=== PATIENT | female | born 1950 | race Caucasian/White ===

== ENCOUNTER → 2019-04-24 09:34 | Outpatient (CLI) | payer MEDICARE, SELFPAY ==
--- NOTE | 2019-04-24 09:41 | RAD_ITS ---
STUDY: X-RAY CHEST REASON FOR EXAM: Female, 68 years old. CBD, shortness of breath TECHNIQUE: PA and lateral views of the chest. COMPARISON: 08/07/2014 FINDINGS: There is hyperinflation of the lungs consistent with chronic obstructive lung disease (COPD). Faint alveolar opacity in the lower left lung consistent with left lower lobe pneumonia or atelectasis. There is no demonstrated pleural abnormality. Normal size heart. Normal mediastinum and carlos. Normal visualized pulmonary arteries. Normal visualized aortic arch and descending thoracic aorta. Normal visualized thoracic spine. Normal visualized ribs, clavicles, and shoulders. There is no demonstrated abnormality of the visualized soft tissue structures of the upper abdomen. RAD/Chest PA and Lateral IMPRESSION: Emphysema with left lower lobe pneumonia or atelectasis. Electronically Signed: Jerald Barraza MD at 10:45 EDT Tel , Service support ,
== END ==
PROVIDERS: Family Provider Family Medicine; PCP Family Medicine; Referring Provider Family Medicine; Visit Provider Family Medicine
DX: J44.1 Chronic obstructive pulmonary disease with (acute) exacerbation (principal)
CPT/HCPCS: 71046

== ENCOUNTER → 2020-06-13 10:13 | Outpatient (CLI) | payer MEDICARE, SELFPAY | PROVIDERS: PCP Family Medicine; Visit Provider Family Medicine | DX: N39.0 Urinary tract infection, site not specified (principal) | CPT/HCPCS: 87086; 87088; 87186 ==

== ENCOUNTER → 2021-04-16 15:07 | Outpatient (CLI) | payer MEDICARE, SELFPAY | PROVIDERS: PCP Family Medicine; Referring Provider Family Medicine; Visit Provider Registered Nurse | DX: U07.1 COVID-19 (principal) | CPT/HCPCS: 87635; U0005; U0003 ==

== ENCOUNTER → 2022-04-09 | Outpatient (CLI) | payer MEDICARE, SELFPAY ==
[2022-04-09 17:44] LABS: Absolute Lymphocyte Count 1.08 X10^3/uL (0.83-4.51); Absolute Neutrophil Count 2.6 X10^3/uL (2.0-7.7); Basophil# 0.04 X10^3/uL; Eosinophil# 0.04 X10^3/uL; Hematocrit 40.2 % (37-47); Lymphocyte # 1.08 X10^3/ul (0.83-4.51); Mean Corp Hgb Conc 32.3 g/dL (32-36); Mean Corpuscular Hgb 28.4 pg (27.0-32.0); Mean Platelet Vol. 12.7 fl (6.2-12.0); Monocyte# 0.26 X10^3/uL; Monocyte% 6.5 % (0-10); NRBC Flagged by Analyzer 0 % (0-5); Neutrophil # 2.57 X10^3/uL (2.7-7.7); Neutrophil % 64.2 % (47-70); Platelet Count 130 K/mm3 (150-450); RBC Distribution Width CV 13.6 % (11.6-14.6); RBC Distribution Width SD 43.5 fl (35.1-43.9); Red Blood Count 4.57 M/mm3 (4.2-5.4)
[2022-04-09 18:04] LABS: Vitamin B12 497 pg/mL (211-911)
[2022-04-09 18:24] LABS: ALB/GLOB Ratio 1.1 RATIO (0.9-2.4); AST(SGOT) 27 U/L (15-37); Alanine Aminotransfer ALT/SGPT 27 U/L (13-56); Alkaline Phosphatase 95 U/L (45-117); Anion Gap 7 (5-15); BUN 15 mg/dL (7-18); BUN/Creat Ratio 14.9 RATIO (10-20); Calcium,Total 9.7 mg/dL (8.5-10.1); Chloride 105 mmol/L (98-107); Creatinine, Serum 1.01 mg/dL (0.55-1.02); EST Glomerular Filtration Rate 57 mL/min (>60); Est Glom Filt Rate - Afr Amer 69 mL/min (>60); Globulin 3.8 g/dL (2.2-4.2); Glucose 89 mg/dL (74-106); Potassium 4.5 mmol/L (3.5-5.1); Protein, Total 7.8 g/dL (6.4-8.2); Sodium Level 138 mmol/L (136-145); Thyroid Stim Hormone (TSH) 1.33 uIU/mL (0.358-3.74)
== END | disposition home or self-care (01) ==
LOC: MFPLAB 14:25
PROVIDERS: PCP Family Medicine; Referring Provider Family Medicine; Visit Provider Family Medicine
DX: B02.29 Other postherpetic nervous system involvement (principal)
CPT/HCPCS: 36415; 80053; 82607; 84443; 85025

== ENCOUNTER → 2022-11-02 | Outpatient (CLI) | payer OTHER, SELFPAY | END | disposition home or self-care (01) | PROVIDERS: PCP Family Medicine; Visit Provider Family Medicine | DX: R30.0 Dysuria (principal) | CPT/HCPCS: 87077; 87086; 87088; 87186 ==

== ENCOUNTER → 2023-02-11 | Outpatient (CLI) | payer MEDICARE, SELFPAY ==
--- NOTE | 2023-02-11 12:48 | BI_ITS ---
MAMMOGRAPHY - BILATERAL SCREENING 3-D TOMOSYNTHESIS REASON FOR EXAM: Female, 72 years old. Routine screening PERTINENT HISTORY: No significant family history. TECHNIQUE: 2-D mammograms and 3-D Tomosynthesis of the breast (s) were performed. CAD was performed. COMPARISON: No comparison mammograms available at this time. If any prior films become available, an addendum to this report can be generated. FINDINGS: The breast composition is heterogeneously dense that can obscure small breast masses. Benign vascular calcifications are seen. No dense spiculated masses or suspicious microcalcifications are identified. No architectural distortion is identified. There is no skin thickening or retraction. BI/SCRN MAMM (CAD)W/NIKIA BILAT IMPRESSION: No mammographic signs of malignancy. Routine yearly mammograms recommended. ASSESSMENT CATEGORY: BIRADS Category 2: Benign. A letter regarding these results will be sent to the patient by the facility within 30 days. FOLLOW UP RECOMMENDATION: Yearly follow up mammogram recommended. (A) Approximately 10% of breast cancers are not detected by mammography. A normal mammogram should not delay biopsy of a clinically suspicious abnormality. Electronically Signed: Chilango Lagos MD at 14:14 EDT ,
--- NOTE | 2023-02-11 12:53 | BD_ITS ---
STUDY: DUAL ENERGY X-RAY ABSORPTIOMETRY / DXA REASON FOR EXAM: Female, 72 years old. Z780 TECHNIQUE: Bone Mineral Density (BMD) measurements of lumbar spine and bilateral hips were obtained. COMPARISON: None. FINDINGS: Lumbar Spine (L1-L4): g/cm2 (0.848) / T-score (-1.9) / Z-score (0.6) Findings are suggestive of osteopenia with a moderate fracture risk. Left Femur Total: g/cm2 (0.709) / T-score (-1.9) / Z-score (-0.2) Left Femoral Neck: g/cm2 (0.680) / T-score (-1.5) / Z-score (0.5) Right Femur Total: g/cm2 (0.696) / T-score (-2.0) / Z-score (-0.3) Right Femoral Neck: g/cm2 (0.668) / T-score (-1.6) / Z-score (0.4) BD/Dexa Bone Density Study IMPRESSION: The patient is considered osteopenic as outlined below according to World Patrick Organization (WHO) criteria with a moderate fracture risk. Reference Information: The T-score is the number of standard deviations above or below the standard which is normal for young adults at their peak bone mineral density. The World Health Organization (WHO) interprets the T-scores as follows: Above -1 Normal bone density Between -1 and -2.5 Osteopenia Equal to / or below -2.5 Osteoporosis As a practical clinical guideline, osteopenia may be graded as follows: Mild -1 through -1.5 Moderate -1.6 through -2.0 Severe -2.1 through -2.4 The Z-score is the number of standard deviations above or below age-matched controls. A Z-score of less than -1.5 would be considered abnormal. References: 1. NIH Osteoporosis and Related Bone Diseases www osteo.org 2. International Society for Clinical Densitometry www iscd.org 3. National Osteoporosis Foundation www nof.org Electronically Signed: Khang Jang MD at 11:11 EDT ,
== END | disposition home or self-care (01) ==
LOC: OPBD 12:46
PROVIDERS: PCP Family Medicine; Referring Provider Family Medicine; Visit Provider Family Medicine
DX: Z12.31 Encounter for screening mammogram for malignant neoplasm of breast (principal); N95.9 Unspecified menopausal and perimenopausal disorder
CPT/HCPCS: 77063; 77067; 77080

== ENCOUNTER → 2023-07-08 | Outpatient (CLI) | payer MEDICARE, SELFPAY ==
[2023-07-08 10:17] LABS: Erythrocyte Sedimentation Rate 18 mm/hr (0-30)
[2023-07-08 10:20] LABS: Absolute Lymphocyte Count 0.47 X10^3/uL (0.83-4.51); Absolute Neutrophil Count 2.5 X10^3/uL (2.0-7.7); Basophil# 0.01 X10^3/uL; Basophil% 0.3 % (0-1); Eosinophil# 0.04 X10^3/uL; Eosinophils% 1.3 % (0-5); Hematocrit 35.1 % (37-47); Hemoglobin 11.2 g/dL (12.0-15.0); Lymphocyte # 0.47 X10^3/ul (0.83-4.51); Lymphocyte % 14.8 % (19-41); Mean Corp Hgb Conc 31.9 g/dL (32-36); Mean Corpuscular Hgb 28.6 pg (27.0-32.0); Mean Corpuscular Volume 89.5 fL (81-99); Mean Platelet Vol. 11.7 fl (6.2-12.0); Monocyte# 0.18 X10^3/uL; Monocyte% 5.7 % (0-10); NRBC Flagged by Analyzer 0 % (0-5); Neutrophil # 2.45 X10^3/uL (2.7-7.7); POSITIVE DIFFERENTIAL YES; Platelet Count 197 K/mm3 (150-450); RBC Distribution Width CV 13.9 % (11.6-14.6); RBC Distribution Width SD 44.8 fl (35.1-43.9); Red Blood Count 3.92 M/mm3 (4.2-5.4); White Blood Count 3.2 K/mm3 (4.4-11.0)
[2023-07-08 10:25] LABS: Differential Indicated SCAN CRITERIA MET
[2023-07-08 10:51] LABS: Differential Comment SCANNED
[2023-07-08 11:03] LABS: PTHIN 60.3 pg/mL (18.4-80.1)
[2023-07-08 11:42] LABS: ALB/GLOB Ratio 0.8 RATIO (0.9-2.4); AST(SGOT) 28 U/L (15-37); Alanine Aminotransfer ALT/SGPT 15 U/L (13-56); Albumin, Serum 3.2 g/dL (3.2-5.0); Alkaline Phosphatase 98 U/L (45-117); Anion Gap 5 (5-15); BUN 19 mg/dL (7-18); BUN/Creat Ratio 20.3 RATIO (10-20); Calcium,Total 8.6 mg/dL (8.5-10.1); Chloride 111 mmol/L (98-107); Creatinine, Serum 0.94 mg/dL (0.55-1.02); EST Glomerular Filtration Rate 62 mL/min (>60); Est Glom Filt Rate - Afr Amer 75 mL/min (>60); Glucose 90 mg/dL (74-106); Magnesium 2.4 mg/dL (1.6-2.6); Protein, Total 7.2 g/dL (6.4-8.2); Sodium Level 142 mmol/L (136-145); Thyroid Stim Hormone (TSH) 2.62 uIU/mL (0.358-3.74)
[2023-07-09 12:09] LABS: ANTINUCLEAR ANTIBODIES DIRECT Positive (Negative); Anti-Centromere B Ab <0.2 AI (0.0-0.9); Anti-Chromatin 1.2 AI (0.0-0.9); Anti-Jo <0.2 AI (0.0-0.9); Anti-Scleroderma-70 AB <0.2 AI (0.0-0.9); Anti-dsDNA Ab 2 IU/mL (0-9); RNP Ab <0.2 AI (0.0-0.9); SJOGREN'S Anti-SS-A test < 0.2 AI (0.0-0.9); SJOGREN'S Anti-SS-B test < 0.2 AI (0.0-0.9); Smith Ab <0.2 AI (0.0-0.9)
[2023-07-09 13:21] LABS: Pathologist Review Reviewed
[2023-07-09 15:08] LABS: Lyme Scn Total Ab w/Rflx Negative (Negative); PROEL- Albumin 3.3 g/dL (2.9-4.4); PROEL- Alpha-1 Globulin 0.4 g/dL (0.0-0.4); PROEL- Alpha-2 Globulin 0.5 g/dL (0.4-1.0); PROEL- Beta Globulin 0.9 g/dL (0.7-1.3); PROEL- Gamma Globulin 1.4 g/dL (0.4-1.8); PROEL- Globulin, Total 3.2 g/dL (2.2-3.9); PROEL- TOTAL PROTEIN 6.5 g/dL (6.0-8.5); PROEL-M-Spike Not Observed g/dL (Not Observed)
== END | disposition home or self-care (01) ==
LOC: MFPLAB 08:46
PROVIDERS: PCP Family Medicine; Visit Provider Family Medicine
DX: M79.10 Myalgia, unspecified site (principal)
CPT/HCPCS: 36415; 80053; 83735; 83970; 84165; 84443; 85025; 85652; 86038; 86140; 86225; 86235; 86431; 86618

== ENCOUNTER → 2023-09-30 | Outpatient (CLI) | payer MEDICARE, SELFPAY ==
--- NOTE | 2023-09-30 12:35 | RAD_ITS ---
INDICATION: COPD EXAMINATION/TECHNIQUE: X-RAY - XR Chest 2 Views COMPARISON: Prior study dated: 04/24/2019 FINDINGS: LINES/DEVICES: None. LUNGS: Left lower lobe infiltrate/atelectasis new since previous exam. Small left pleural effusion. MEDIASTINUM AND CARDIOVASCULAR STRUCTURES: Cardiac silhouette not enlarged. Central airways and mediastinal contour are unremarkable. BONES AND SOFT TISSUES: No demonstrated acute osseous changes. RAD/Chest PA and Lateral IMPRESSION: Mild left lower lobe infiltrate/atelectasis and small left pleural effusion. Electronically Signed: Shay Grey MD at 8:28 EST ,
[2023-09-30 15:37] LABS: Absolute Lymphocyte Count 0.86 X10^3/uL (0.83-4.51); Absolute Neutrophil Count 7.5 X10^3/uL (2.0-7.7); Basophil# 0.03 X10^3/uL; Basophil% 0.3 % (0-1); Hematocrit 37.3 % (37-47); Hemoglobin 11.9 g/dL (12.0-15.0); Lymphocyte # 0.86 X10^3/ul (0.83-4.51); Lymphocyte % 9.5 % (19-41); Mean Corp Hgb Conc 31.9 g/dL (32-36); Mean Corpuscular Hgb 27.7 pg (27.0-32.0); Mean Corpuscular Volume 86.7 fL (81-99); Mean Platelet Vol. 12.8 fl (6.2-12.0); Monocyte# 0.68 X10^3/uL; Monocyte% 7.5 % (0-10); NRBC Flagged by Analyzer 0 % (0-5); Neutrophil # 7.49 X10^3/uL (2.7-7.7); Neutrophil % 82.3 % (47-70); Platelet Count 147 K/mm3 (150-450); RBC Distribution Width CV 14.6 % (11.6-14.6); RBC Distribution Width SD 45.9 fl (35.1-43.9); White Blood Count 9.1 K/mm3 (4.4-11.0)
[2023-09-30 16:24] LABS: Erythrocyte Sedimentation Rate 17 mm/hr (0-30)
[2023-09-30 19:07] LABS: ALB/GLOB Ratio 0.7 RATIO (0.9-2.4); AST(SGOT) 32 U/L (15-37); Alanine Aminotransfer ALT/SGPT 24 U/L (13-56); Albumin, Serum 3.3 g/dL (3.2-5.0); Alkaline Phosphatase 131 U/L (45-117); Anion Gap 8 (5-15); BUN 19 mg/dL (7-18); BUN/Creat Ratio 17.8 RATIO (10-20); Calcium,Total 9.1 mg/dL (8.5-10.1); Chloride 106 mmol/L (98-107); Creatinine, Serum 1.07 mg/dL (0.55-1.02); EST Glomerular Filtration Rate 53 mL/min (>60); Est Glom Filt Rate - Afr Amer 64 mL/min (>60); Globulin 4.5 g/dL (2.2-4.2); Glucose 96 mg/dL (74-106); Potassium 3.7 mmol/L (3.5-5.1); Protein, Total 7.8 g/dL (6.4-8.2); Sodium Level 135 mmol/L (136-145)
[2023-10-04 12:09] LABS: ANTINUCLEAR ANTIBODIES DIRECT Positive (Negative)
[2023-10-04 15:08] LABS: PROEL- Albumin 3.4 g/dL (2.9-4.4); PROEL- Alpha-1 Globulin 0.5 g/dL (0.0-0.4); PROEL- Alpha-2 Globulin 0.7 g/dL (0.4-1.0); PROEL- Beta Globulin 0.8 g/dL (0.7-1.3); PROEL- Gamma Globulin 1.4 g/dL (0.4-1.8); PROEL- Globulin, Total 3.4 g/dL (2.2-3.9); PROEL- TOTAL PROTEIN 6.8 g/dL (6.0-8.5); PROEL-M-Spike Comment: g/dL (Not Observed)
== END | disposition home or self-care (01) ==
PROVIDERS: PCP Family Medicine; Referring Provider Family Medicine; Visit Provider Family Medicine
DX: J44.9 Chronic obstructive pulmonary disease, unspecified (principal); M06.4 Inflammatory polyarthropathy; R41.89 Other symptoms and signs involving cognitive functions and awareness
CPT/HCPCS: 36415; 71046; 80053; 84165; 85025; 85652; 86038; 86140

== ENCOUNTER → 2023-10-08 | Outpatient (CLI) | payer MEDICARE, SELFPAY ==
--- NOTE | 2023-10-08 12:44 | RAD_ITS ---
STUDY: X-RAY CHEST REASON FOR EXAM: Female, 73 years old. Left lower lobe pneumonia. Follow-up. Smoker. TECHNIQUE: Frontal and lateral views of the chest. COMPARISON: 09/30/2023. FINDINGS: Borderline cardiomegaly, aortic tortuosity, prominent central pulmonary arteries, hyperinflation and scattered healed parenchymal granulomatous calcifications unchanged. Linear opacity at the left base with left pleural thickening, relatively unchanged from prior study. No abnormality of the visualized soft tissue structures of the upper abdomen. RAD/Chest PA and Lateral IMPRESSION: Stable borderline cardiomegaly, hyperinflation and linear opacity with left pleural thickening/pleural effusion. No acute abnormality. Follow-up chest imaging to resolution recommended. Electronically Signed: Lester Manzano MD at 13:14 EDT ,
== END | disposition home or self-care (01) ==
LOC: MTRAD 12:39
PROVIDERS: PCP Family Medicine; Referring Provider Family Medicine; Visit Provider Family Medicine
DX: J15.4 Pneumonia due to other streptococci (principal); J10.1 Influenza due to other identified influenza virus with other respiratory manifestations
CPT/HCPCS: 71046

== ENCOUNTER → 2023-11-18 | Outpatient (CLI) | payer MEDICARE, SELFPAY ==
--- NOTE | 2023-11-18 14:01 | RAD_ITS ---
STUDY: X-RAY CHEST REASON FOR EXAM: Female, 73 years old. Pneumonia due to other streptococci TECHNIQUE: PA and lateral views of the chest. COMPARISON: Comparison is made with prior study October 08, 2023. FINDINGS: There is hyperinflation of the lungs consistent with chronic obstructive lung disease (COPD). The lungs are clear. There is no demonstrated pleural abnormality. Normal size heart. Normal mediastinum and carlos. There is prominence of the pulmonary hilar arteries without peripheral pulmonary vascular congestion, suggesting pulmonary hypertension. There is atherosclerotic calcification of the aortic arch with tortuosity. There are diffuse degenerative changes of the visualized thoracic spine. Normal visualized ribs, clavicles, and shoulders. There is no demonstrated abnormality of the visualized soft tissue structures of the upper abdomen. RAD/Chest PA and Lateral IMPRESSION: Hyperinflation. No acute abnormality is seen. Electronically Signed: Khang Jang MD at 9:22 EDT ,
== END | disposition home or self-care (01) ==
LOC: MTRAD 13:59
PROVIDERS: PCP Family Medicine; Referring Provider Family Medicine; Visit Provider Family Medicine
DX: J15.4 Pneumonia due to other streptococci (principal)
CPT/HCPCS: 71046

== ENCOUNTER 2024-06-20 16:33 | Inpatient (IN) | payer MEDICARE, SELFPAY ==
[2024-06-20 16:38] VITALS: BP 87/40; PULSE 81; RESP 16; TEMP 36.6; O2SAT 99
--- NOTE | 2024-06-20 17:33 | CT_ITS ---
STUDY: CT ABDOMEN AND PELVIS WITH CONTRAST REASON FOR EXAM: Female, 73 years old. Anemia, jaundice painless RADIATION DOSAGE (If Supplied By Facility): CTDIvol = ( 10.56 ) mGy, DLP = ( 533.09 ) mGycm TECHNIQUE: Transaxial images were obtained from the dome of the diaphragm to the symphysis pubis without oral contrast. IV 100mL Isovue-300 was administered. Sagittal and coronal images were reconstructed. Individualized dose optimization techniques were used for this CT. COMPARISON: None. FINDINGS: The visualized lung bases are unremarkable. The visualized portions of the heart are within normal limits. The liver is enlarged but homogeneous attenuation without mass or bile duct dilatation.. Contracted gallbladder without calcified stones most likely physiologic. The spleen is markedly enlarged but homogeneous attenuation. Normal pancreas. Normal bilateral adrenal glands. Normal right kidney. Small simple cyst in left kidney which will not require additional imaging Normal visualized stomach. Normal small intestine. Normal colon. The appendix is visualized and appears normal. Atherosclerotic change of the aorta without evidence for aneurysm. Normal inferior vena cava. Normal retroperitoneum. Normal urinary bladder. The uterus is mildly enlarged and deviated towards the left Small right adnexal cyst measuring approximately 2.3 x 1.7 cm likely ovarian. Small amount of free fluid in the pelvis Postop change status post right inguinal herniorrhaphy Lumbar spine demonstrates minor spondylosis. Grade 1 spondylolisthesis at L4-5. CT/Abdomen/Pelvis W IV Cont ONLY IMPRESSION: Nonspecific hepatosplenomegaly with mild ascites. Possible nonspecific hepatocellular disease although cannot exclude hematologic disorder.. Clinical correlation recommended. Electronically Signed: James Knowles MD at 19:06 EST Reading Location ID and State: [facility] / [place] Tel , Service support ,
--- NOTE | 2024-06-20 18:19 | EX.ED.DYSGE1 ---
HPI History of Present Illness Chief Complaint: Abn Labs Detail of Chief Complaint: Low hemoglobin, dyspnea and fatigue and yellow skin Informant: patient and spouse/S.O. Onset/Context/Timing Onset: Days (With respect to the yellow skin) and Weeks (With respect to the shortness of breath) Context: Gradual Onset Timing: Continuous Quality: Hemoglobin low and yellow skin Location: Hematologic and hepatic Current Severity: Mild Maximum Severity: Moderate Worsened by: Dyspnea on exertion Relieved by: Rest Associated Symptoms Associated Symptoms: Dark-colored urine, yellow skin negative weight loss or night sweats Narrative Narrative: Patient is a 73-year-old woman with no significant past medical history. She presents because of abnormal blood work. She had a CBC done at her doctor's office. Hemoglobin was 5.2 with hematocrit of 17.1. MCV is 125.7. Folate and B12 was not obtained. Patient does have a ferritin level. Liver enzymes reveal a total bili of 4.6 with an AST of 60 and ALT of 20. C-reactive protein was elevated 6.74. Total protein and albumin are normal. Patient denies black or maroon-colored stool. Patient denies hematuria. Patient denies headache, visual, ocular auditory symptoms. Patient denies trouble speech or swallowing. Patient denies cardiac symptoms. Patient does report shortness of breath and fatigue with activity. She denies abdominal pain or back pain. She denies skin lesions. She denies bruising easily. She is not on anticoagulant. Prior similar symptoms: No Recent Illness/Hospitalization: No PFSH PFSH Allergy/AdvReac Type Severity Reaction Status Date / Time No Known Allergies Allergy Verified 06/20/24 16:43 Social History (Updated 06/20/24 @ 18:[address] Rizwan Doan MD) household members: spouse Smoking Status: Current every day smoker tobacco type: cigarettes ROS ROS ED Constitutional Constitutional ED: Denies chills, fever(s), subjective, sweats or weight loss Eyes Eyes: Denies blurry vision, change in vision or diplopia ENT ENT ED: Denies ear pain, rhinorrhea or sore throat Cardiovascular Cardiovascular: Denies chest pain, orthopnea, palpitations or paroxysmal nocturnal dyspnea Respiratory/Chest Respiratory/Chest: Reports dyspnea and dyspnea on exertion; Denies cough, orthopnea, paroxysmal nocturnal dyspnea or sputum Gastrointestinal Gastrointestinal: Denies abdominal pain, melena, nausea or vomiting Genitourinary Genitourinary ED: Denies dysuria, hematuria or urinary frequency Musculoskeletal Musculoskeletal: Denies arthralgias, back pain or myalgias Integumentary Denies rash Neurologic Neurologic: Denies headache(s) or paresthesias Psychiatric Psychiatric: Denies anxiety or depression Endocrine Endocrinology: Denies cold intolerance or heat intolerance Hematologic/Lymphatic Hematologic/Lymphatic: Reports systems reviewed and no addt'l complaints, except as documented EXAM Physical Exam Const Vital Signs: 06/20/24 16:38 06/20/24 18:30 06/20/24 18:30 Temperature 97.8 F Temperature Source Temporal Pulse Rate 81 83 Respiratory Rate 16 16 Respiratory Effort Respiratory Pattern Blood Pressure 87/40 L 117/55 L 117/55 L Blood Pressure Mean 55 75 75 Pulse Ox 99 95 Oxygen Delivery Method Room Air Room Air 06/20/24 18:43 Temperature Temperature Source Pulse Rate Respiratory Rate Respiratory Effort Normal Respiratory Pattern Normal Blood Pressure Blood Pressure Mean Pulse Ox Oxygen Delivery Method Positive well nourished and well developed Constitutional Narrative: Patient appears pale and jaundiced. Patient blood pressure apparently was low at 87/40. General Appearance ED: well developed, NAD and pallor; Negative for cyanotic or diaphoretic HEENT Reports dry mucous membranes Mouth ED: Yes dry mucous membranes Mouth: dry mucous membranes Eyes PERRL and EOMs intact bilaterally General Eye ED: Yes pale conjunctiva and scleral icterus Neck no lymphadenopathy, supple and no JVD Chest Wall inspection of chest normal and palpation of chest normal Resp normal respiratory effort and clear to auscultation bilaterally Cardio regular rate, regular rhythm, S1 normal heart sound and no murmurs GI normal to inspection, nondistended, normoactive bowel sounds, non-tender, non-distended and no masses; Negative for hepatosplenomegaly Palpation: soft Back/Spine no CVA tenderness Extremity Extremity Narrative: Edema otherwise negative General Extremety ED: Yes edema General Extremity: edema Neuro oriented x3, CN's II-XII intact bilaterally and no sensory deficits noted Sensorium / Orientation: alert Motor Exam: strength 5/5 throughout Psych mental status grossly normal Skin no rashes or lesions noted, no wounds and skin turgor normal General Skin Exam: jaundice and pallor; Negative for elasticity normal MDM MDM MDM Narrative Medical decision making narrative: Patient's blood work was reviewed that was obtained earlier. There was additional blood work. She was typed and crossed for 2 units of blood. Because she has painless jaundice CT of the abdomen was obtained. This may be a hematologic problem but also need to rule out pancreatic cancer with this being painless. She will require transfusion. Will start transfusion in the emergency department. Since patient's blood pressure is low we will administer 1 L of fluids. I was not aware of her low blood pressure initially. Once I became aware of her low blood pressure I did order IV fluids wide open. Lab Data Labs: Laboratory Results - last 24 hr 06/20/24 06/20/24 17:00 17:50 Vitamin B12 1375 H Folate 17.10 Crossmatch See Detail Radiography Diagnostic Testing: Clinical Impression(s) from Imaging Studies Abdomen/Pelvis CT 06/20/24 17:33 IMPRESSION: Nonspecific hepatosplenomegaly with mild ascites. Possible nonspecific hepatocellular disease although cannot exclude hematologic disorder.. Clinical correlation recommended. Electronically Signed: James Knowles MD at 19:06 EST Reading Location ID and State: [address] [place] [address] Tel , Service support , Management Discussion w/another healthcare provider: Hospitalist (Hospitalist made aware of the CT results and blood results. He will add on additional labs to evaluate if she is hemolyzing and because of her jaundice.) and Tentering Machine Off Bearer (Radiologist contacted me regarding CAT scan result.) Discharge Plan Triage Chief Complaint: Abn Labs Other Complaint: Lower Extremity Injury ED Provider: Rizwan Doan Dx/Rx/DC Orders Clinical Impression: Anemia, pernicious, Painless jaundice, Signs and symptoms of anemia, Symptomatic anemia, Anemia requiring transfusions, Acute hypotension Primary Care Provider: Khadar Feliz Referrals: Khadar Feliz MD [Primary Care Provider] - Print Language: Greenlandic Disposition Disposition: Acute Care Hospital [facility]
[2024-06-20 18:30] VITALS: BP 117/55; PULSE 83; RESP 16; O2SAT 95
[2024-06-20 18:40] LABS: Vitamin B12 1375 pg/mL (211-911)
[2024-06-20] MEDS: 0.9% Normal Saline (1000mL) 1,000 ML 1000 ML IV (18:54)
[2024-06-20 20:00] VITALS: BP 107/62; PULSE 58; RESP 18; TEMP 36.6; O2SAT 95
--- NOTE | 2024-06-20 20:09 | PCM.HP.STD ---
[facility] - General General Date of Admission: 06/20/24 Date of Service: 06/20/24 Chief Complaint: Severe anemia on outpatient labs [facility] Narrative CARLITA BROWN, is a 73 F who presented to [facility] on 06/20/2024 after a severe anemia was found on outpatient labs. Patient has no significant past medical history. 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 She began to notice worsening fatigue and shortness of breath on exertion about 2 weeks ago. She then began to notice yellowing of her skin about 3 to 4 days ago. Also noticed worsening lower extremity swelling, worse on her left with pain to palpation. She was seen at her PCP office and had labs drawn. CBC notable for hemoglobin 5.2, MCV 125. CMP notable for total bilirubin of 4.6, AST 60, ALT 20. CRP was mildly elevated at 6.74. Patient denied any change in bowel movements or any acid reflux symptoms. Given her abnormal labs, patient was sent to the ED for further evaluation. On arrival here she was hypotensive to the 80s over 40s but otherwise hemodynamically stable with heart rate in the 80s. She was noted to have fairly significant jaundice. She was given 1 L of IV fluids with good blood pressure response. Type and screen was ordered and hospitalist was contacted for admission. I saw the patient at bedside in the ED, was present. Patient was mildly fatigued appearing but otherwise sitting up comfortably in bed, conversing normally and in no acute distress. She does report pain and swelling in her bilateral lower legs, worse on the left. Denies any history of clots. Denies any history of autoimmune disease. Patient does note that she was bitten by a tick about 2 weeks ago. When she finally noticed the tick it was very engorged. Her PCP started her on p.o. doxycycline only a few days ago. Lyme disease antibody was ordered and is pending. She also noted a significant brown recluse spider bite on her right inner ankle several months ago. Spider bite has healed well per the patient. Patient otherwise denies any other acute pain or discomfort. Will be admitted for further management. 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 Testing done prior to transfusing the patient showed that patient's blood had significant reaction and would lead to a transfusion reaction for patient if given. I talked with lab over the phone and they told me that we would have to get blood from an outside facility and this could take up to 2 to 3 days. Because of this and patient's potential need for further hemolytic anemia workup and treatments such as Rituxan that are not available here, transfer was initiated. Patient was ultimately accepted to the telemetry unit at [facility] and transport will be picking the patient up around 8 AM. [facility] Home Medications ?Medication ?Instructions ?Recorded ?Last Taken ?Type albuterol sulfate 90 mcg/actuation 1 - 2 puff inhalation Q4H PRN PRN 06/20/24 Unknown History aerosol inhaler wheezing bimatoprost 0.03 % eye drops 1 drp ophthalmic (eye) DAILY 06/20/24 Unknown History doxycycline monohydrate 100 mg 100 mg PO BID 06/20/24 Unknown History tablet mirtazapine 15 mg tablet 15 mg PO QHS 06/20/24 Unknown History pregabalin 150 mg capsule 150 mg PO QHS 06/20/24 Unknown History pregabalin 25 mg capsule 25 mg PO BID 06/20/24 Unknown History Allergy/AdvReac Type Severity Reaction Status Date / Time No Known Allergies Allergy Verified 06/20/24 16:43 Social History (Updated 06/20/24 @ 18:[address] Rizwan Doan MD) household members: spouse Smoking Status: Current every day smoker tobacco type: cigarettes ROS Constitutional Constitutional: Reports fatigue and weakness; Denies chills or fever(s) Eyes Eyes: Denies change in vision ENT HEENT: Denies dysphagia Cardiovascular Cardiovascular: Denies chest pain or palpitations Respiratory/Chest Respiratory/Chest: Denies cough or shortness of breath at rest Gastrointestinal Gastrointestinal: Denies abdominal pain Musculoskeletal Musculoskeletal: Denies arthralgias or myalgias Vital Signs Vital Signs Vital Signs: 06/20/24 16:38 06/20/24 18:30 06/20/24 18:30 Temperature 97.8 F Temperature Source Temporal Pulse Rate 81 83 Respiratory Rate 16 16 Respiratory Effort Respiratory Pattern Blood Pressure 87/40 L 117/55 L 117/55 L Blood Pressure Mean 55 75 75 Pulse Ox 99 95 Oxygen Delivery Method Room Air Room Air 06/20/24 18:43 Temperature Temperature Source Pulse Rate Respiratory Rate Respiratory Effort Normal Respiratory Pattern Normal Blood Pressure Blood Pressure Mean Pulse Ox Oxygen Delivery Method Physical Exam Const alert, oriented x3, no apparent distress and average body habitus Constitutional Narrative: Pleasant elderly female, mildly fatigued appearing, otherwise sitting up comfortably in bed, conversing normally, in no acute distress. General Appearance: cooperative and comfortable HEENT normocephalic, head/scalp atraumatic, hearing grossly normal bilaterally, nasal mucous membranes and turbinates normal and moist oral mucous membranes Eyes PERRL, EOMs intact bilaterally and conjunctivae normal Eyes Narrative: Scleral icterus noted. Neck full ROM Chest inspection of chest normal Resp normal respiratory effort, normal air movement, no use of accessory muscles and clear to auscultation bilaterally Cardio regular rate, regular rhythm, no murmurs and peripheral pulses 2+ throughout GI normal to inspection, nondistended, normoactive bowel sounds, soft to palpation, non-tender and non-distended Back/Spine normal ROM Extremity normal to inspection, full ROM and no pedal edema Skin Skin Narrative: Whole-body jaundice noted. Psych mental status grossly normal Results Lab / Micro Data Labs: Laboratory Results - last 24 hr 06/20/24 17:00: Folate 17.10, Crossmatch See Detail 06/20/24 17:50: Vitamin B12 1375 H Imaging Radiology Impression Abdomen/Pelvis CT 06/20/24 17:33 IMPRESSION: Nonspecific hepatosplenomegaly with mild ascites. Possible nonspecific hepatocellular disease although cannot exclude hematologic disorder.. Clinical correlation recommended. 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 1. 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 Admit under inpatient status to PCU. Hemoglobin 5.2 on admit, MCV 125. Last hemoglobin was 11.9 in September. Lab had high concern for warm autoimmune hemolytic anemia given patient's lab findings and reactions on blood products in the lab here. Unclear etiology for warm AIHA but patient did have recent tick bite and babesiosis and Lyme disease have been associated with this. Transferring process to [facility]. Did give a dose of IV Solu-Medrol 125 mg here as recommended treatment is steroids plus likely a steroid sparing agent like Rituxan. 2. Left lower extremity swelling ?Has +2-3 left lower extremity pitting edema from the foot up to just below the knee. D-dimer elevated at 1.50. Patient's with warm autoimmune hemolytic anemia are at high risk for DVT. Notably is hemodynamically stable on room air, low concern for PE. Ordered lower extremity duplex ultrasound to assess for DVT here but suspect this will not be completed prior to transfer. 3. Recent tick bite ? Patient reported incidentally pulling tick off that was very engorged about 2 weeks ago. Was prescribed p.o. doxycycline and has taken that as prescribed to this point. 4. Neuropathy ? Continue home Lyrica. 5. Painless jaundice ? Total bilirubin 4.6 on admit, direct bilirubin 0.91. Hepatosplenomegaly noted on CT abdomen pelvis here but no other significant findings noted. Presume this is secondary to hemolytic anemia as noted above. DVT prophylaxis: SCDs CODE STATUS: Full code, verified Expected disposition: Transfer to [facility] Total clinical time spent by myself addressing the patient's medical issues, reviewing all the data, and collaborating with patient's care team: 75 minutes. Charges/Coding Visit Charges Inpatient E&M: 34492 Init Hosp L3
[2024-06-20 20:26] VITALS: BP 107/62; PULSE 58; RESP 18; TEMP 36.6; O2SAT 95
[2024-06-20 21:43] VITALS: BMI 21.9
[2024-06-20 21:48] VITALS: BMI 21.9
[2024-06-20 21:51] LABS: Bilirubin, Direct 0.91 mg/dL (0.00-0.30); Ferritin 133 ng/mL (8-252); Iron 145 ug/dL (50-170); Iron Binding Capacity,Total 209 ug/dL (250-450); LDH 620 U/L (84-246); PERCENT IRON SATURATION 69.4 % (15.0-55.0)
[2024-06-20 22:05] VITALS: BP 111/46; PULSE 90; RESP 18; TEMP 36.7; O2SAT 98
[2024-06-20] MEDS: Mirtazapine 15 MG Tablet PO (22:58)
[2024-06-20] MEDS: Pregabalin 75 MG Capsule 150 MG PO (22:58)
[2024-06-20] MEDS: Latanoprost 0.005% 1 Bottle 1 DRP OPHTHALMIC (23:02)
[2024-06-20] MEDS: MethylPREDNISolone 125 MG/2 ML Vial IV (23:59)
[2024-06-20] MEDS: Doxycycline 100 MG CAPSULE PO (23:59)
[2024-06-21] MEDS: Folic Acid 1 MG Tablet PO (01:24)
[2024-06-21 02:03] LABS: Platelet Count 95 K/mm3 (150-450); Reticulocyte Count 0.77 % (0.5-1.5)
[2024-06-21 04:06] VITALS: BP 102/50; PULSE 82; RESP 16; TEMP 36.6; O2SAT 96
--- NOTE | 2024-06-21 06:36 | DCINST_ITS ---
Discharge Instructions Diet Discharge Diet: No restrictions DC O2, CPAP, BIPAP needs Additional Home O2 Discharge instructions: No Follow Up Care Test Results: Test results from this visit will be discussed in further detail at your follow- up appointment, if applicable. Discharge Plan Admission Admit Date/Time: 06/20/24 20:42 Primary Reason for Your Visit: fatigue Attending Provider: Daniel Lima Primary Care Provider: Khadar Feliz Discharge Orders/Prescriptions Prescriptions: Continued mirtazapine 15 mg tablet 15 mg PO QHS bimatoprost 0.03 % drops 1 drp ophthalmic (eye) DAILY doxycycline monohydrate 100 mg tablet 100 mg PO BID albuterol sulfate 90 mcg/actuation HFA aerosol inhaler 1 - 2 puff INHALATION Q4H PRN PRN (Reason: wheezing) pregabalin 25 mg capsule 25 mg PO BID pregabalin 150 mg capsule 150 mg PO QHS Referrals / Follow Up: Khadar Feliz MD [Primary Care Provider] - Disposition Disposition (needs filled in before D/C Order can be placed): [facility]
--- NOTE | 2024-06-21 06:36 | PCM.DC.SUM ---
Providers Date of Admission: 06/20/24 Date of Discharge: 06/21/24 Primary Care Physician: Dr. 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 Code(s): D59.10 - Autoimmune hemolytic anemia, unspecified (2) Symptomatic anemia: Status: Acute Code(s): D64.9 - Anemia, unspecified (3) Painless jaundice: Status: Acute Code(s): R17 - Unspecified jaundice Medications at Discharge Home Medications albuterol sulfate 90 mcg/actuation aerosol inhaler 1 - 2 puff inhalation Q4H PRN PRN wheezing 06/20/24 bimatoprost 0.03 % eye drops 1 drp ophthalmic (eye) DAILY 06/20/24 doxycycline monohydrate 100 mg tablet 100 mg PO BID 06/20/24 mirtazapine 15 mg tablet 15 mg PO QHS 06/20/24 pregabalin 150 mg capsule 150 mg PO QHS 06/20/24 pregabalin 25 mg capsule 25 mg PO BID 06/20/24 Hospital Course Operations None Procedures None Summary of Care Provided Minutes Spent on Discharge: 35 Hospital Course: Patient is a 73-year-old female who presented [facility] ED on 06/20/24 with abnormal outpatient labs. Short hospital course was notable low. Patient was transferred to [facility] on 06/21. 1. 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 Hemoglobin 5.2 on admit, MCV 125. Last hemoglobin was 11.9 in September. Lab had high concern for warm autoimmune hemolytic anemia given patient's lab findings and reactions on blood products in the lab here. Unclear etiology for warm AIHA but patient did have recent tick bite and babesiosis and Lyme disease have been associated with this. Was given a dose of IV Solu-Medrol 125 mg here prior to transfer. Transferred to [facility] on 06/21. 2. Left lower extremity swelling ? Had +2-3 left lower extremity pitting edema from the foot up to just below the knee. D-dimer elevated at 1.50. Patient's with warm autoimmune hemolytic anemia are at high risk for DVT. Notably is hemodynamically stable on room air, low concern for PE. Ordered lower extremity duplex ultrasound to assess for DVT here but suspect this was not completed prior to transfer. 3. Recent tick bite ? Patient reported incidentally pulling tick off that was very engorged about 2 weeks ago. Was prescribed p.o. doxycycline and had taken that as prescribed to this point, was continued here. 4. Neuropathy ? Continue home Lyrica. 5. Painless jaundice ? Total bilirubin 4.6 on admit, direct bilirubin 0.91. Hepatosplenomegaly noted on CT abdomen pelvis here but no other significant findings noted. Presume this is secondary to hemolytic anemia as noted above. Total clinical time spent by myself addressing the patient's medical issues, reviewing all the data, and collaborating with patient's care team: 35 minutes. Physical Exam Const alert, oriented x3, no apparent distress and average body habitus Constitutional Narrative: Pleasant elderly female, mildly fatigued appearing, otherwise sitting up comfortably in bed, conversing normally, in no acute distress. General Appearance: cooperative and comfortable HEENT normocephalic, head/scalp atraumatic, hearing grossly normal bilaterally, nasal mucous membranes and turbinates normal and moist oral mucous membranes Eyes PERRL, EOMs intact bilaterally and conjunctivae normal Eyes Narrative: Scleral icterus noted. Neck full ROM Chest inspection of chest normal Resp normal respiratory effort, normal air movement, no use of accessory muscles and clear to auscultation bilaterally Cardio regular rate, regular rhythm, no murmurs and peripheral pulses 2+ throughout GI normal to inspection, nondistended, normoactive bowel sounds, soft to palpation, non-tender and non-distended Back/Spine normal ROM Extremity normal to inspection, full ROM and no pedal edema Skin Skin Narrative: Whole-body jaundice noted. Psych mental status grossly normal Weight / BMI Weight Weight: 56 kg Body Mass Index (BMI) 21.9 ABG / Lab / Microbiology Data 06/21/24 06:19 06/21/24 06:19 Laboratory: Laboratory Results - last 24 hr 06/20/24 17:00: Folate 17.10, Crossmatch See Detail 06/20/24 17:50: Vitamin B12 1375 H 06/20/24 21:05: Iron 145, TIBC 209 L, Iron Saturation 69.4 H, Ferritin 133, Direct Bilirubin 0.91 H, Lactate Dehydrogenase 620 H, TSH 1.260 06/21/24 01:15: Retic Count 0.77, D-Dimer Quant (PE/DVT) 1.50 H* Radiography Diagnostic Testing: Radiology Impression Abdomen/Pelvis CT 06/20/24 17:33 IMPRESSION: Nonspecific hepatosplenomegaly with mild ascites. Possible nonspecific hepatocellular disease although cannot exclude hematologic disorder.. Clinical correlation recommended. Electronically Signed: James Knowles MD at 19:06 EST Reading Location ID and State: [address] [place] [address] Tel , Service support , D/C Instructions DC O2, CPAP, BIPAP Needs Additional Home O2 Discharge instructions: No DC home with Oxygen: No Meaningful Use Info Meaningful Use Meaningful Use Diagnoses (Choose all that apply): None applicable Ischemic Stroke Statin Dosing Therapy Reference: STATIN DOSE THERAPY REFERENCE: * Patients > 75 years receive moderate or high dose statin therapy. * Patients 75 years or YOUNGER should receive HIGH intensity statin dose unless contraindicated. You will be required to document reason for non-treatment if statin daily dose does not meet guidelines. HIGH DOSE STATIN THERAPY DAILY Atorvastatin > than or = to 40 mg Rosuvastatin > than or = to 20 mg Amlodipine + Atorvastatin > than or = to 2.5/40 mg Ezetimibe + Simvastatin 10/80 mg Simvastatin 80mg Discharge Plan Admission Admit Date/Time: 06/20/24 20:42 Primary Reason for Your Visit: fatigue Attending Provider: Daniel Lima Primary Care Provider: Khadar Feliz Discharge Orders/Prescriptions Prescriptions: Continued mirtazapine 15 mg tablet 15 mg PO QHS bimatoprost 0.03 % drops 1 drp ophthalmic (eye) DAILY doxycycline monohydrate 100 mg tablet 100 mg PO BID albuterol sulfate 90 mcg/actuation HFA aerosol inhaler 1 - 2 puff INHALATION Q4H PRN PRN (Reason: wheezing) pregabalin 25 mg capsule 25 mg PO BID pregabalin 150 mg capsule 150 mg PO QHS Referrals / Follow Up: Khadar Feliz MD [Primary Care Provider] - Disposition Disposition (needs filled in before D/C Order can be placed): Acute Care Hospital Charges/Coding Visit Charges Inpatient E&M: 64140 Disch Hosp >30min
[2024-06-21 07:38] VITALS: BP 104/55; PULSE 82; RESP 18; TEMP 36.6; O2SAT 98
[2024-06-21 07:41] LABS: Hematocrit 17.8 % (37-47); Mean Corp Hgb Conc 30.3 g/dL (32-36); Mean Corpuscular Hgb 37.2 pg (27.0-32.0); Mean Corpuscular Volume 122.8 fL (81-99); POSITIVE COUNT YES; POSITIVE MORPHOLOGY YES; Platelet Count 108 K/mm3 (150-450); RBC Distribution Width CV 31.9 % (11.6-14.6); Red Blood Count 1.45 M/mm3 (4.2-5.4)
[2024-06-21 07:50] LABS: Differential Indicated MANUAL DIFF; Hemoglobin 5.4 g/dL (12.0-15.0)
[2024-06-21] MEDS: Enoxaparin 40 MG/0.4 ML Syringe SC (08:05)
[2024-06-21] MEDS: Doxycycline 100 MG CAPSULE PO (08:06)
[2024-06-21] MEDS: Pregabalin 25 MG Capsule PO (08:06)
[2024-06-21 08:48] LABS: ALB/GLOB Ratio 1.3 RATIO (0.9-2.4); AST(SGOT) 45 U/L (15-37); Alanine Aminotransfer ALT/SGPT 21 U/L (13-56); Albumin, Serum 3.4 g/dL (3.2-5.0); Alkaline Phosphatase 73 U/L (45-117); Anion Gap 9 (5-15); BUN 21 mg/dL (7-18); BUN/Creat Ratio 23.2 RATIO (10-20); Calcium,Total 8.7 mg/dL (8.5-10.1); Chloride 113 mmol/L (98-107); Creatinine, Serum 0.91 mg/dL (0.55-1.02); EST Glomerular Filtration Rate 64 mL/min (>60); Est Glom Filt Rate - Afr Amer 78 mL/min (>60); Estimated Creatinine Clearance 44.19 ml/min; Globulin 2.7 g/dL (2.2-4.2); Glucose 110 mg/dL (74-106); Potassium 3.8 mmol/L (3.5-5.1); Protein, Total 6.1 g/dL (6.4-8.2); Sodium Level 140 mmol/L (136-145)
[2024-06-21 09:07] LABS: Basophil 1 % (0-1); Lymphocyte 14 % (19-41); Metamyelocyte 4 % (0-1); Monocyte 1 % (0-10); Myelocyte 2 % (0-0); Neutrophil-Band 5 % (0-5); Neutrophil-Segmented 73 % (47-70); Nucleated Red Bld Cells,Manual 1 % (0-5); Total Cells Counted 100 (MANUAL DIFF)
[2024-06-21 09:08] LABS: Absolute Neutrophil Count 3.9 X10^3/uL (2.0-7.7)
[2024-06-21 09:09] LABS: Anisocytosis 4+; Polychromasia 3+
[2024-06-21 09:10] LABS: Acanthocytes RARE; Bite Cell RARE; Macrocytosis 3+; Target Cells RARE; Tear Drop Cell 1+
[2024-06-21 14:31] LABS: Pathologist Review Reviewed
[2024-06-22 04:08] LABS: Haptoglobin < 10 mg/dL (42-346)
== END 2024-06-21 08:32 | disposition short-term general hospital (02) | DRG 810 ==
LOC: ED 20:12 → MS3 20:54
PROVIDERS: Admitting Provider Hospitalist; Emergency Provider Emergency Medicine; PCP Family Medicine; Visit Provider Hospitalist
DX: D59.11 Warm autoimmune hemolytic anemia (principal); D53.9 Nutritional anemia, unspecified; F17.210 Nicotine dependence, cigarettes, uncomplicated; G62.9 Polyneuropathy, unspecified
CPT/HCPCS: 36415; 74177; 80053; 82248; 82607; 82728; 82746; 83010; 83540; 83550; 83615; 84443; 85025; 85045; 85379; 85652; 86038; 86140; 86618; 86850; 86870; 86900; 86901; 99284; J7030; Q9967; A4216

== ENCOUNTER → 2024-06-20 | Outpatient (CLI) | payer MEDICARE, SELFPAY ==
[2024-06-20 13:38] LABS: Hematocrit 17.1 % (37-47); Mean Corp Hgb Conc 30.4 g/dL (32-36); Mean Corpuscular Hgb 38.2 pg (27.0-32.0); Mean Corpuscular Volume 125.7 fL (81-99); Mean Platelet Vol. 10.9 fl (6.2-12.0); POSITIVE COUNT YES; POSITIVE MORPHOLOGY YES; Platelet Count 129 K/mm3 (150-450); Red Blood Count 1.36 M/mm3 (4.2-5.4); White Blood Count 4.9 K/mm3 (4.4-11.0)
[2024-06-20 13:39] LABS: Differential Indicated MANUAL DIFF; Hemoglobin 5.2 g/dL (12.0-15.0)
[2024-06-20 14:28] LABS: Neutrophil-Band 6 % (0-5); Neutrophil-Segmented 54 % (47-70); Total Cells Counted 100 (MANUAL DIFF)
[2024-06-20 14:33] LABS: Eosinophil 2 % (0-5); Lymphocyte 26 % (19-41); Metamyelocyte 4 % (0-1); Monocyte 7 % (0-10); Myelocyte 1 % (0-0)
[2024-06-20 14:57] LABS: Absolute Neutrophil Count 2.9 X10^3/uL (2.0-7.7)
[2024-06-20 14:58] LABS: Absolute Lymphocyte Count 1.27 X10^3/uL (0.83-4.51)
[2024-06-20 14:59] LABS: Anisocytosis 4+; Platelet Estimate SLT DEC (ADEQ); Polychromasia 2+
[2024-06-20 15:01] LABS: Macrocytosis 2+; Microcytosis 1+; Ovalocyte 1+; Target Cells RARE
[2024-06-20 15:55] LABS: Erythrocyte Sedimentation Rate < 1 mm/hr (0-30)
[2024-06-20 15:57] LABS: ALB/GLOB Ratio 1.2 RATIO (0.9-2.4); AST(SGOT) 60 U/L (15-37); Alanine Aminotransfer ALT/SGPT 22 U/L (13-56); Albumin, Serum 3.6 g/dL (3.2-5.0); Alkaline Phosphatase 74 U/L (45-117); Anion Gap 7 (5-15); BUN 25 mg/dL (7-18); BUN/Creat Ratio 23.6 RATIO (10-20); CRP 6.74 mg/L (0.0-3.0); Calcium,Total 8.8 mg/dL (8.5-10.1); Chloride 112 mmol/L (98-107); Creatinine, Serum 1.06 mg/dL (0.55-1.02); EST Glomerular Filtration Rate 54 mL/min (>60); Est Glom Filt Rate - Afr Amer 65 mL/min (>60); Ferritin 154 ng/mL (8-252); Globulin 3.1 g/dL (2.2-4.2); Glucose 90 mg/dL (74-106); Potassium 3.7 mmol/L (3.5-5.1); Protein, Total 6.7 g/dL (6.4-8.2); Sodium Level 139 mmol/L (136-145)
[2024-06-21 14:35] LABS: Pathologist Review Reviewed
[2024-06-22 12:09] LABS: Lyme Scn Total Ab w/Rflx Negative (Negative)
== END | disposition home or self-care (01) ==
PROVIDERS: PCP Family Medicine; Visit Provider Family Medicine
DX: G47.00 Insomnia, unspecified (principal); W57.XXXA Bitten or stung by nonvenomous insect and other nonvenomous arthropods, initial encounter
CPT/HCPCS: 36415; 80053; 82728; 85025; 85652; 86140; 86618

== ENCOUNTER → 2024-06-27 | Outpatient (CLI) | payer MEDICARE, SELFPAY ==
[2024-06-27 17:59] LABS: Absolute Lymphocyte Count 1.18 X10^3/uL (0.83-4.51); Absolute Neutrophil Count 2.9 X10^3/uL (2.0-7.7); Basophil# 0.02 X10^3/uL; Basophil% 0.5 % (0-1); Eosinophil# 0.01 X10^3/uL; Eosinophils% 0.2 % (0-5); Hematocrit 29.5 % (37-47); Hemoglobin 9.6 g/dL (12.0-15.0); Lymphocyte # 1.18 X10^3/ul (0.83-4.51); Mean Corp Hgb Conc 32.5 g/dL (32-36); Mean Corpuscular Hgb 36.1 pg (27.0-32.0); Mean Corpuscular Volume 110.9 fL (81-99); Mean Platelet Vol. 10.1 fl (6.2-12.0); Monocyte# 0.26 X10^3/uL; Monocyte% 5.9 % (0-10); NRBC Flagged by Analyzer 0 % (0-5); Neutrophil # 2.87 X10^3/uL (2.7-7.7); Neutrophil % 65.7 % (47-70); POSITIVE MORPHOLOGY YES; Platelet Count 157 K/mm3 (150-450); RBC Distribution Width CV 25.8 % (11.6-14.6); RBC Distribution Width SD 98.2 fl (35.1-43.9); Red Blood Count 2.66 M/mm3 (4.2-5.4); White Blood Count 4.4 K/mm3 (4.4-11.0)
[2024-06-27 18:08] LABS: Differential Indicated SCAN CRITERIA MET
[2024-06-27 19:10] LABS: Anisocytosis 2+; Polychromasia 1+
== END | disposition home or self-care (01) ==
LOC: MFPLAB 12:17
PROVIDERS: PCP Family Medicine; Referring Provider Family Medicine; Visit Provider Family Medicine
DX: D59.10 Autoimmune hemolytic anemia, unspecified (principal)
CPT/HCPCS: 36415; 80053; 85025

== ENCOUNTER → 2024-10-26 | Outpatient (CLI) | payer MEDICARE, SELFPAY ==
--- NOTE | 2024-10-26 12:04 | BI_ITS ---
EXAM: SCRN MAMM (CAD)W/NIKIA BILAT DATE: 10/26/2024 CLINICAL HISTORY: F, Age 74 y/o , SCREENING No family history. BREAST CANCER RISK ASSESSMENT: Not assessed. TECHNIQUE: Bilateral screening digital breast tomosynthesis with 2D and 3D images. Computer aided detection. COMPARISON: Prior exam(s) dated February 11, 2023.. FINDINGS: TISSUE DENSITY: The breast tissue is extremely dense which lowers the sensitivity of mammography. Bilateral Breast Mammographic Findings: No significant masses, calcifications or other abnormalities are identified. BI/SCRN MAMM (CAD)W/NIKIA BILAT IMPRESSION: Right Breast: BIRADS 1 NEGATIVE. Left Breast: BIRADS 1 NEGATIVE. OVERALL FINAL ASSESSMENT: BIRADS 1 NEGATIVE RECOMMENDATION: Routine annual follow-up in 1 Year A letter with findings and recommendations will be mailed to the patient. Reading Location: [place] [address]
== END | disposition home or self-care (01) ==
LOC: OPBI 12:02
PROVIDERS: PCP Family Medicine; Referring Provider Family Medicine; Visit Provider Family Medicine
DX: Z12.31 Encounter for screening mammogram for malignant neoplasm of breast (principal)
CPT/HCPCS: 77063; 77067

== ENCOUNTER 2024-11-03 11:03 | Outpatient (CLI) | payer MEDICARE, SELFPAY ==
[2024-11-03 13:11] LABS: Hemoglobin A1c 4.8 % (<=5.6)
[2024-11-03 13:24] LABS: Cholesterol 161 mg/dL (<=200); High Density Lipoprotein 68 mg/dL; Low Density Lipoprotein Calc. 80 mg/dL; Triglycerides 67 mg/dL; Very Low Density Lipoprotein 13 mg/dL (5-40); cholesterol:hdl ratio screen 2.38
== END 2024-11-03 23:59 | disposition home or self-care (01) ==
LOC: MFPLAB 11:05
PROVIDERS: PCP Family Medicine
DX: Z13.220 Encounter for screening for lipoid disorders (principal); Z13.1 Encounter for screening for diabetes mellitus
CPT/HCPCS: 36415; 80061; 83036

== ENCOUNTER → 2025-01-30 | Outpatient (CLI) | payer MEDICARE, SELFPAY | END | disposition home or self-care (01) | LOC: LAB.FUTURE 15:39 → LABSPEC 15:41 | PROVIDERS: PCP Family Medicine; Referring Provider Family Medicine; Visit Provider Family Medicine | DX: N39.0 Urinary tract infection, site not specified (principal) | CPT/HCPCS: 87077; 87086; 87088; 87186 ==